=== PATIENT | male | born 1975 | race Caucasian/White ===

== ENCOUNTER → 2018-10-13 | Outpatient (CLI) | payer BC ==
[~2018-10-13] MED LIST: BUSPIRONE HCL10 MG PO; CHANTIX0.5 MG PO; HUMALOG; HYDROCODON-ACE1 EAC7 PO; MOBIC15 MG PO; ZOLOFT100 MG PO
== END ==
LOC: M.RAD 15:58
DX: M47.812 Spondylosis without myelopathy or radiculopathy, cervical region (principal); M48.02 Spinal stenosis, cervical region; M25.78 Osteophyte, vertebrae; M43.12 Spondylolisthesis, cervical region

== ENCOUNTER → 2018-10-27 | Outpatient (CLI) | payer BC | LOC: M.MRI 14:05 | DX: M47.22 Other spondylosis with radiculopathy, cervical region (principal); M50.123 Cervical disc disorder at C6-C7 level with radiculopathy; M48.02 Spinal stenosis, cervical region; R60.0 Localized edema ==

== ENCOUNTER → 2021-04-06 | Outpatient (CLI) | payer BC | LOC: M.ULTRA 10:49 | PROVIDERS: ATTEND Nurse Practitioner | DX: M79.661 Pain in right lower leg (principal); M79.662 Pain in left lower leg; E10.69 Type 1 diabetes mellitus with other specified complication; E78.5 Hyperlipidemia, unspecified; I10 Essential (primary) hypertension; M79.89 Other specified soft tissue disorders; R79.89 Other specified abnormal findings of blood chemistry ==